=== PATIENT | male | born 1990 | race Caucasian/White ===

== ENCOUNTER 2020-02-06 11:45 | Emergency (ER) | payer OTHER, SELFPAY ==
[2020-02-06] MEDS ORDERED: Lidocaine 1% 20 ML MDV ONE (12:09)
[2020-02-06] MEDS ORDERED: Bacitracin 1 PK ONE (12:09)
--- NOTE | 2020-02-06 12:45 | RAD ---
XR Hand Rt 3 View STANDARD HISTORY: Injury, right hand pain FINDINGS: There is a minimally displaced oblique fracture involving the base of the distal phalanx of the littl e finger/fifth digit with fracture line extending into the articular surface.
[2020-02-06] MEDS ORDERED: Ibuprofen 800 MG TAB ONE (12:51)
[2020-02-06] MEDS ORDERED: Clindamycin 150 MG CAP ONE (12:51)
== END 2020-02-06 13:20 | disposition home or self-care (01) ==
LOC: MADERS 11:45
DX: S62.630A Displaced fracture of distal phalanx of right index finger, initial encounter for closed fracture (principal); S61.214A Laceration without foreign body of right ring finger without damage to nail, initial encounter; E10.9 Type 1 diabetes mellitus without complications; J45.909 Unspecified asthma, uncomplicated; W26.9XXA Contact with unspecified sharp object(s), initial encounter
CPT/HCPCS: 12002

== ENCOUNTER 2022-06-12 20:09 | Emergency (ER) | payer OTHER ==
[2022-06-12] MEDS ORDERED: Lidocaine 1% w/Epinephrine 1:100K 20 ML VIAL ONE (21:12)
[2022-06-12] MEDS ORDERED: Boostrix 0.5 ML (Tdap) VIAL (>/=7 yrs of age) ONE (21:12)
[2022-06-12] MEDS ORDERED: Bacitracin 1 PK ONE (22:15)
[2022-06-12] MEDS ORDERED: Cephalexin 500 MG CAP ONE (22:16)
== END 2022-06-12 22:18 | disposition home or self-care (01) ==
LOC: MADERS 20:09
DX: S51.811A Laceration without foreign body of right forearm, initial encounter (principal); E10.9 Type 1 diabetes mellitus without complications; F17.220 Nicotine dependence, chewing tobacco, uncomplicated; W26.8XXA Contact with other sharp object(s), not elsewhere classified, initial encounter; Y93.89 Activity, other specified; Y92.69 Other specified industrial and construction area as the place of occurrence of the external cause; Z23 Encounter for immunization
CPT/HCPCS: 12002; 90471; 90715